=== PATIENT | male | born 2000 | race American Indian/Alaskan Native ===

== ENCOUNTER 2021-06-08 17:09 | Emergency (ER) | payer SELFPAY ==
[2021-06-08] MEDS ORDERED: SODIUM CHLORIDE 0.9% 1000 ML 1,000 ML IV ONE (17:14)
[2021-06-08] MEDS ORDERED: KETOROLAC 30 MG/1 ML INJ IV ONE (17:14)
--- NOTE | 2021-06-08 17:16 | Emergency Department Report ---
ED Seizure HPI - General Chief Complaint: Seizure Stated Complaint: SEIZURE Time Seen by Provider: 06/08/21 17:13 Source: EMS Mode of arrival: Stretcher Limitations: No Limitations - History of Present Illness Initial Comments: Patient presents with EMS secondary to possible seizure. EMS states that they were called for altered mental status. Family on scene went back and forth about whether the patient had a seizure. They did report seizure activity. EMS states that the patient was oriented when they arrived. According to family and patient, these symptoms have occurred previously. Patient has not sought medical attention for this. He does not have any recollection of the events. He is complaining of a headache. There is no history of fall or trauma. There is no history of recent illness or vomiting. Patient states that he really has no complaints other than a headache currently. This is similar to other presentations. There is no recent history of travel or trauma. - Related Data Previous Rx's Medication Instructions Recorded Last Taken Type levETIRAcetam [Keppra TAB] 500 mg PO BID #60 tablet 06/08/21 Unknown Rx Allergies Allergy/AdvReac Type Severity Reaction Status Date / Time No Known Allergies Allergy Unverified 06/08/21 17:14 ED Review of Systems ROS: Stated complaint: SEIZURE Other details as noted in HPI Comment: All other systems reviewed and negative Constitutional: denies: fever Eyes: denies: eye pain ENT: denies: throat pain Respiratory: denies: cough Cardiovascular: denies: chest pain Endocrine: denies: unexplained weight loss Gastrointestinal: denies: abdominal pain Genitourinary: denies: urgency Musculoskeletal: denies: back pain Skin: denies: rash Neurological: as per HPI, headache Hematological/Lymphatic: denies: easy bruising ED Past Medical Hx - Past Medical History Hx Seizures: Yes (Possible) - Family History Family history: no significant - Medications Home Medications: Home Medications Medication Instructions Recorded Confirmed Last Taken Type levETIRAcetam [Keppra TAB] 500 mg PO BID #60 tablet 06/08/21 Unknown Rx ED Physical Exam - General Limitations: No Limitations, Other (Pulse ox noted and normal) General appearance: alert, in no apparent distress ED Course Vital Signs 06/08/21 17:10 Temperature 97.8 F Pulse Rate 82 Respiratory 12 Rate Blood Pressure 110/72 [Left] O2 Sat by Pulse 100 Oximetry - Reevaluation(s) Reevaluation #1: 01/26/22 19:34 Labs were noted. Patient had been seen upon EMS arrival and labs ordered. Patient was now discharged. ED Medical Decision Making - Lab Data Result diagrams: 06/08/21 17:56 - Medical Decision Making Patient presents with a possible seizure. This is been recurrent for the patient. Based on reports from EMS and the patient, it is certainly possible that he has some type of seizure disorder. Patient was started on medication as this is been a recurrent issue for the patient. He was referred to neurology for outpatient follow-up. We have discussed seizure precautions. There is no neurologic deficit suggestive of intracranial lesion. He has no metabolic derangement. He does not appear to have any obvious infectious pathology. Critical Care Time: No Critical care attestation.: If time is entered above; I have spent that time in minutes in the direct care of this critically ill patient, excluding procedure time. ED Disposition Clinical Impression: Seizure Disposition: HOME / SELF CARE / HOMELESS Is pt being admited?: No Condition: Stable Instructions: Seizure, Adult Additional Instructions: Drink plenty water. Do not operate heavy equipment. Do not swim alone. Do not drive your car until released by your regular doctor or your neurologist or the referral physicians. Prescriptions: levETIRAcetam [Keppra TAB] 500 mg PO BID #60 tablet Referrals: PRIMARY MD TRICE [Primary Care Provider] - 3-5 Days LEMUEL ACUNA MD [Staff Physician] - 3-5 Days MARIUM PETE MD [Staff Physician] - 3-5 Days
[2021-06-08 19:27] LABS: BUN/Creatinine Ratio 11; Blood Urea Nitrogen 10 mg/dL (9-20); Calcium 9.5 mg/dL (8.4-10.2); Hemolysis Index 8
[2021-06-08 21:40] VITALS: BP 100/57
== END 2021-06-08 20:45 | disposition home or self-care (01) ==
LOC: ED 17:09
DX: R56.9 Unspecified convulsions (principal)
CPT/HCPCS: 36415; 80048; 83735; 96361; 96374; 99283; J1885; J7030; Q0162

== ENCOUNTER 2021-08-16 15:50 | Emergency (ER) | payer MEDICAID ==
[2021-08-16] MEDS ORDERED: ONDANSETRON 4 MG/2 ML INJ ONE (16:16)
[2021-08-16] MEDS ORDERED: levETIRAcetam 1000 MG/NS 0.75% 1,000 MG/100 ML BAG IV ONE (16:17)
[2021-08-16] MEDS ORDERED: SODIUM CHLORIDE 0.9% 1000 ML 1,000 ML IV ONE (16:17)
[2021-08-16] MEDS ORDERED: ONDANSETRON 4 MG/2 ML INJ IV ONE (16:17)
--- NOTE | 2021-08-16 16:25 | Emergency Department Report ---
ED Seizure HPI - General Chief Complaint: Seizure Stated Complaint: SEIZURE Time Seen by Provider: 08/16/21 16:16 Source: patient, EMS Mode of arrival: Stretcher Limitations: No Limitations - History of Present Illness Initial Comments: Patient is 21 years old male with history of seizure, noncompliant with her medication. Patient on Keppra 500 mg twice a day. Patient brought to the emergency room via EMS from home for evaluation of generalized tonic-clonic seizure witnessed by his family. Patient denied any fever or chills. No injury. Patient stated that he is nauseated. MD Complaint: seizure Description of Episode: loss of consciousness, tonic-clonic movement, post-event confusion Witnessed:: Yes Trauma: No Seizure History: known seizure disorder, history of non-compliance Possible Precipitating Event: none Treatments Prior to Arrival: none - Related Data Previous Rx's Medication Instructions Recorded Last Taken Type levETIRAcetam [Keppra TAB] 500 mg PO BID #60 tablet 06/08/21 Unknown Rx Allergies Allergy/AdvReac Type Severity Reaction Status Date / Time No Known Allergies Allergy Verified 08/16/21 15:59 ED Review of Systems ROS: Stated complaint: SEIZURE Other details as noted in HPI Comment: All other systems reviewed and negative Constitutional: denies: chills, fever Respiratory: denies: cough, shortness of breath, SOB with exertion, SOB at rest Cardiovascular: denies: chest pain, palpitations, dyspnea on exertion Gastrointestinal: nausea. denies: abdominal pain, vomiting, diarrhea, constipa tion, hematemesis, melena, hematochezia Neurological: denies: headache, weakness, numbness, paresthesias, confusion ED Past Medical Hx - Past Medical History Previous Medical History?: Yes Hx Seizures: Yes (Possible) - Medications Home Medications: Home Medications Medication Instructions Recorded Confirmed Last Taken Type levETIRAcetam [Keppra TAB] 500 mg PO BID #60 tablet 06/08/21 Unknown Rx ED Physical Exam - General Limitations: No Limitations General appearance: alert, in no apparent distress - Head Head exam: Present: atraumatic, normocephalic, normal inspection - Eye Eye exam: Present: normal appearance - ENT ENT exam: Present: normal exam, normal orophraynx - Neck Neck exam: Present: normal inspection, full ROM. Absent: tenderness, meningismus - Respiratory Respiratory exam: Present: normal lung sounds bilaterally - Cardiovascular Cardiovascular Exam: Present: regular rate, normal rhythm, normal heart sounds - GI/Abdominal GI/Abdominal exam: Present: soft, normal bowel sounds. Absent: distended, tenderness, guarding, rebound, rigid, pulsatile mass, hernia - Extremities Exam Extremities exam: Present: normal inspection, full ROM, normal capillary refill. Absent: tenderness - Back Exam Back exam: Present: normal inspection, full ROM. Absent: CVA tenderness (R), CVA tenderness (L) - Neurological Exam Neurological exam: Present: alert, oriented X3, CN II-XII intact, normal gait, reflexes normal. Absent: motor sensory deficit - Psychiatric Psychiatric exam: Present: normal mood - Skin Skin exam: Present: warm, intact, normal color ED Course Vital Signs 08/16/21 08/16/21 08/16/21 15:58 16:12 16:13 Temperature 97.7 F Pulse Rate 72 61 Respiratory 16 15 15 Rate Blood Pressure Blood Pressure 128/63 114/69 [Right] O2 Sat by Pulse 99 98 98 Oximetry 08/16/21 08/16/21 08/16/21 16:18 16:30 16:46 Temperature Pulse Rate 59 L Respiratory 19 Rate Blood Pressure 114/69 116/75 Blood Pressure [Right] O2 Sat by Pulse 93 98 100 Oximetry 08/16/21 08/16/21 08/16/21 17:00 17:20 17:30 Temperature Pulse Rate 66 55 L 57 L Respiratory 19 18 20 Rate Blood Pressure 105/59 Blood Pressure [Right] O2 Sat by Pulse 100 100 100 Oximetry 08/16/21 08/16/21 08/16/21 17:46 18:00 18:16 Temperature Pulse Rate 54 L 53 L 59 L Respiratory 17 17 19 Rate Blood Pressure Blood Pressure [Right] O2 Sat by Pulse 100 100 100 Oximetry 08/16/21 18:30 Temperature Pulse Rate 63 Respiratory 16 Rate Blood Pressure Blood Pressure [Right] O2 Sat by Pulse 100 Oximetry ED Medical Decision Making - Lab Data Result diagrams: 08/16/21 16:26 08/16/21 16:26 - Radiology Data Radiology results: report reviewed - Medical Decision Making Patient is 21 years old male with history of seizure, noncompliant with her medication. Patient on Keppra 500 mg twice a day. Patient brought to the emergency room via EMS from home for evaluation of generalized tonic-clonic seizure witnessed by his family. Patient denied any fever or chills. No injury. Patient stated that he is nauseated. No seizure activity is observed in the ER. Patient received Keppra 1 g IV. Labs reviewed and is unremarkable. Patient is complaining from headache and nausea. Patient received Zofran. Patient CT head is negative for acute finding. Patient advised to be compliant with his medication and to follow-up with a neurologist in the next 2 to 3 days and to return to the ER if he develop any new symptoms. Critical care attestation.: If time is entered above; I have spent that time in minutes in the direct care of this critically ill patient, excluding procedure time. ED Disposition Clinical Impression: Seizure, Headache Disposition: 01 HOME / SELF CARE / HOMELESS Is pt being admited?: No Condition: Stable Instructions: Seizure, Adult Referrals: SHANTEL CARNES MD [Primary Care Provider] - 3-5 Days ROBBIE TEE MD [Referring] - 3-5 Days
[2021-08-16 16:43] LABS: Basophils % (Auto) 0.7 % (0.0-1.8); Eosinophils # (Auto) 0.1 K/mm3 (0.0-0.4); Eosinophils % (Auto) 1.3 % (0.0-4.3); Hematocrit 45.5 % (35.5-45.6); Hemoglobin 15.2 gm/dl (11.8-15.2); Lymphocytes % (Auto) 19.5 % (13.4-35.0); Mean Corpuscular HGB Conc 33 % (32-34); Mean Corpuscular Volume 82 fl (84-94); Monocytes # (Auto) 0.4 K/mm3 (0.0-0.8); Monocytes % (Auto) 7.2 % (0.0-7.3); Platelet Count 263 K/mm3 (140-440); Red Blood Count 5.55 M/mm3 (3.65-5.03); Red Cell Distribution Width 13.7 % (13.2-15.2)
[2021-08-16 17:03] LABS: Alanine Aminotransferase 11 units/L (7-56); Albumin 4.7 g/dL (3.9-5); BUN/Creatinine Ratio 12; Blood Urea Nitrogen 12 mg/dL (9-20); Calcium 9.4 mg/dL (8.4-10.2); Hemolysis Index 4
[2021-08-16 17:08] LABS: Bilirubin,Direct < 0.2 mg/dL (0-0.2)
--- NOTE | 2021-08-16 17:36 | Cat Scan Report ---
CT HEAD WITHOUT CONTRAST INDICATION / CLINICAL INFORMATION: seizure. TECHNIQUE: All CT scans at this location are performed using CT dose reduction for ALARA by means of automated e xposure control. COMPARISON: None available. FINDINGS: HEMORRHAGE: No evidence of intracranial hemorrhage or extra-axial fluid collection. EXTRA-AXIAL SPACES: Cortical sulci, sylvian fissures and basilar cisterns have an unremarkable appear ance. VENTRICULAR SYSTEM: The third and lateral ventricles are of normal size and configuration. CEREBRAL PARENCHYMA: No areas of abnormal brain parenchymal attenuation are identified. There is no i ndication of recent infarction. MIDLINE SHIFT OR HERNIATION: There is no mass effect. CEREBELLUM / BRAINSTEM: Brainstem and cerebellum have an unremarkable appearance. MIDLINE STRUCTURES:No abnormalities of the pituitary gland or pineal region are identified. INTRACRANIAL VESSELS:No abnormalities are identified on this noncontrast head CT. ORBITS: visualized portions of the orbits have an unremarkable appearance. SOFT TISSUES of HEAD: No significant abnormality. CALVARIUM: Evaluation of bone windows reveals no abnormalities. PARANASAL SINUSES / MASTOID AIR CELLS: Visualized portions of the paranasal sinuses are free from inf lammatory mucosal disease. Mastoid air cells are normally pneumatized. IMPRESSION: 1. Normal head CT without contrast. Signer Name: Jose Azevedo MD Signed: 08/16/2021 5:32 PM Workstation Name: [id number]
[2021-08-16 18:00] LABS: Bilirubin,Urine NEG (Negative); Blood,Urine NEG (Negative); Color,Urine Straw (Yellow); Mucus,Urine FEW /HPF; Protein,Urine <15 mg/dL mg/dL (Negative); Urobilinogen,Urine < 2.0 mg/dL (<2.0)
[2021-08-16 18:05] LABS: Amphetamine Screen,Urine PRESUMPTIVE NEGATIVE; Benzodiazepines Screen,Urine PRESUMPTIVE NEGATIVE; Cannabinoid Screen,Urine PRESUMPTIVE POSITIVE; Cocaine Screen,Urine PRESUMPTIVE NEGATIVE; Methadone Screen,Urine PRESUMPTIVE NEGATIVE; Opiate Screen,Urine PRESUMPTIVE NEGATIVE
[2021-08-16] MEDS ORDERED: ACETAMINOPHEN 500 MG TAB PO ONE (18:36)
[2021-08-16 19:18] VITALS: BP 101/49
== END 2021-08-16 19:18 | disposition home or self-care (01) ==
LOC: ED 15:50
DX: R56.9 Unspecified convulsions (principal); G43.909 Migraine, unspecified, not intractable, without status migrainosus
CPT/HCPCS: 36415; 70450; 80048; 80076; 80307; 81001; 85025; 96361; 96374; 96375; 99284; J1953; J2405; J7030; Q0162